=== PATIENT | male | born 1970 | race Two or more races ===

== ENCOUNTER 2018-10-21 12:52 | Emergency (ER) | payer OTHER ==
[~2018-10-21] VITALS: Ht 167.6 cm; Wt 142.9 kg
[2018-10-21] MEDS ORDERED: OSEL75CA PO (13:28)
[2018-10-21] MEDS ORDERED: TESSALON PERLE100 M1 PO (13:28)
[2018-10-21] MEDS ORDERED: ALLERGY RELIEF10 M3 PO (13:29)
== END 2018-10-21 18:17 | disposition home or self-care (01) ==
LOC: ER 12:52
DX: B34.9 Viral infection, unspecified (principal); R05 Cough

== ENCOUNTER 2018-12-24 15:36 | Emergency (ER) | payer OTHER ==
[~2018-12-24] VITALS: Ht 167.6 cm; Wt 140.6 kg
[~2018-12-24 15:36] MED LIST: ALLERGY RELIEF10 M3 PO; OSEL75CA PO; TESSALON PERLE100 M1 PO
[2018-12-24] MEDS ORDERED: KETO10TA2 PO (19:09)
[2018-12-24] MEDS ORDERED: ORPHENADRINE C100 MG PO (19:09)
== END 2018-12-24 19:44 | disposition home or self-care (01) ==
LOC: ER 15:36
DX: M62.830 Muscle spasm of back (principal); M54.5 Low back pain; R10.32 Left lower quadrant pain

== ENCOUNTER 2022-07-22 15:59 | Emergency (ER) | payer OTHER ==
[~2022-07-22] VITALS: Ht 167.6 cm; Wt 163.3 kg
[~2022-07-22 15:59] MED LIST changes: +KETO10TA2 PO; +ORPHENADRINE C100 MG PO
== END 2022-07-22 20:49 | disposition home or self-care (01) ==
LOC: ER 15:59
DX: J09.X2 Influenza due to identified novel influenza A virus with other respiratory manifestations (principal); Z20.828 Contact with and (suspected) exposure to other viral communicable diseases